=== PATIENT | female | born 1980 | race Caucasian/White ===

== ENCOUNTER 2017-01-10 14:07 | Outpatient (CLI) | payer BC, SELFPAY ==
--- NOTE | 2017-01-10 17:03 | US ---
EXAM DATE: 01/10/17 PATIENT'S AGE: 36 Patient: CRISTINA PANCHAL Facility: [place], [place] Site . Site : 1980 Study: US OB Pelvis [id number]/27/2017 4:05:52 PM Ordering Physician: Diony Summers Final Report: INDICATION: Cramping TECHNIQUE: Limited grayscale and Doppler imaging of the cervix. COMPARISON: None FINDINGS/ IMPRESSION: : The cervix measures 4.5 cm in length. The cervix appears closed. Placenta previa is partially visualized. Dictated by Keiko Cuellar MD @ Jan 10 2017 4:06PM (Electronic Signature) Report Signed by Proxy. ROLO
== END 2017-01-10 16:24 | disposition home or self-care (01) ==
LOC: MW.OBCHECK 14:07 → MW.OB 14:09 → MW.OBCHECK 16:24
PROVIDERS: ATTEND Obstetrics & Gynecology
DX: Z34.92 Encounter for supervision of normal pregnancy, unspecified, second trimester (principal)
CPT/HCPCS: 59025; 76817; 76817-26

== ENCOUNTER 2017-04-21 21:39 | Inpatient (IN) | payer MEDICAID ==
[2017-04-21] MEDS ORDERED: Methylergonovine 0.2 MG/1 ML Amp IM PRN (21:53)
[2017-04-21] MEDS ORDERED: Terbutaline 1 MG/ML SDV SUBCUT PRN (21:53)
[2017-04-21] MEDS ORDERED: Lidocaine 1% 50 ML MDV INJECT PRN (21:53)
[2017-04-21] MEDS ORDERED: Butorphanol 1 MG/ML SDV IVPUSH PRN (21:53)
[2017-04-21] MEDS ORDERED: Carboprost Tromethamine 250 MCG/1 ML Amp IM PRN (21:53)
[2017-04-21] MEDS ORDERED: Water For Irrigation,Sterile 1,000 ML Container IRR PRN (21:53)
[2017-04-21] MEDS ORDERED: Nalbuphine 10 MG/1 ML Vial IVPUSH PRN (21:53)
[2017-04-21] MEDS ORDERED: Misoprostol 200 MCG Tab PO PRN (21:53)
[2017-04-21] MEDS ORDERED: Sodium Chloride 0.9% 10 ML Syringe FLUSH PRN (21:58)
[2017-04-21] MEDS ORDERED: Sodium Chloride 0.9% 2.5 ML Syringe FLUSH PRN (21:58)
[2017-04-21] MEDS ORDERED: Misoprostol 25 MCG (1/4 of 100 MCG) Tab VAG SCH (22:00)
[2017-04-21] MEDS ORDERED: Oxytocin/Lactated Ringers 30 UNIT/500 ML BAG IV SCH ×2 (22:00)
[2017-04-21] MEDS: Lactated Ringers 1,000 ML IV SCH (22:40)
[2017-04-22] MEDS ORDERED: diphenhydrAMINE 25 MG Cap PO ONE
[2017-04-22] MEDS ORDERED: Acetaminophen 500 MG Tab PO ONE
[2017-04-22] MEDS: Lactated Ringers 1,000 ML IV SCH ×2 (01:28→02:25)
[2017-04-22] MEDS ORDERED: Ropivacaine HCl/PF 100 ML ONE (01:53)
[2017-04-22] MEDS ORDERED: fentaNYL 100 MCG/2 ML SDV ONE (01:53)
--- NOTE | 2017-04-22 02:43 | PCM.PREANE ---
Preanesthetic Assessment - Anesthesia/Transfusion/Family Hx Anesthesia History: Prior Anesthesia Without Reaction (Epidurals only, no GA) Family History of Anesthesia Reaction: No Transfusion History: No Prior Transfusion(s) - Review of Systems General: No Symptoms Pulmonary: No Symptoms Cardiovascular: No Symptoms Gastrointestinal: No Symptoms Neurological: No Symptoms Other: Reports: Anxiety - Physical Assessment NPO Status Date: 04/22/17 NPO Status Time: 02:41 (sips/chips) Blood Pressure: 134/84 Height: 5 ft 8 in Weight: 238 lb ASA Class: 2 Mental Status: Alert & Oriented x3 Airway Class: Mallampati = 2 Dentition: Reports: Normal Dentition ROM/Head Extension: Full Lungs: Clear to Auscultation, Normal Respiratory Effort Cardiovascular: Regular Rate, Regular Rhythm - Lab Values: Laboratory Last Values WBC 9.27 K/uL (4.0-11.0) 04/21/17 22:35 RBC 3.86 M/uL (4.30-5.90) L 04/21/17 22:35 Hgb 12.1 g/dL (12.0-16.0) 04/21/17 22:35 Hct 35.5 % (36.0-46.0) L 04/21/17 22:35 MCV 92.0 fL (80.0-98.0) 04/21/17 22:35 MCH 31.3 pg (27.0-32.0) 04/21/17 22:35 MCHC 34.1 g/dL (31.0-37.0) 04/21/17 22:35 RDW Std Deviation 54.2 fl (28.0-62.0) 04/21/17 22:35 RDW Coeff of Isaac 16 % (11.0-15.0) H 04/21/17 22:35 Plt Count 144 K/uL (150-400) L 04/21/17 22:35 MPV 12.20 fL (7.40-12.00) H 04/21/17 22:35 Nucleated RBC % 0.0 /100WBC 04/21/17 22:35 Nucleated RBCs # 0 K/uL 04/21/17 22:35 Blood Type O NEGATIVE 04/21/17 22:35 Antibody Screen POSITIVE 04/21/17 22:35 Antibody Identification Anti-D 04/21/17 22:35 - Allergies Allergies/Adverse Reactions: Allergies Allergy/AdvReac Type Severity Reaction Status Date / Time No Known Allergies Allergy Verified 01/10/17 15:15 - Blood Blood Available: No Product(s) Available: None - Anesthesia Plan Free Text/Narrative:: Labor Epidural - Acknowledgements Anesthesia Type Planned: Epidural Pt an Appropriate Candidate for the Planned Anesthesia: Yes Alternatives and Risks of Anesthesia Discussed w Pt/Guardian: Yes Pt/Guardian Understands and Agrees with Anesthesia Plan: Yes 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: Endocrine/Metabolic History: Reports: Hypothyroidism, Obesity/BMI 30+ - Infectious Disease History Infectious Disease History: Reports: Herpes (No active outbreak at this time) - SUBSTANCE USE Smoking Status *Q: Never Smoker Recreational Drug Use History: No - CURRENT (IN HOUSE) MEDS Current Meds: Current Medications Butorphanol Tartrate (Stadol) 1 mg IVPUSH Q1H PRN PRN Reason: Pain Carboprost Tromethamine (Hemabate Ds) 250 mcg IM ASDIRECTED PRN PRN Reason: Post Hemorrhage Lactated Ringer's (Ringers, Lactated) 1,000 mls @ 150 mls/hr IV ASDIRECTED HARSHAL Last Admin: 04/22/17 02:25 Dose: 999 mls/hr Oxytocin/Lactated Ringer's (Pitocin In Lr 30 Units/500 Ml) 30 unit in 500 mls @ 2 mls/hr IV TITRATE HARSHAL; 2 MUNITS/MIN PRN Reason: Protocol Stop: 04/22/17 21:59 Oxytocin/Lactated Ringer's (Pitocin In Lr 30 Units/500 Ml) 30 unit in 500 mls @ 2 mls/hr IV TITRATE HARSHAL; 2 MUNITS/MIN PRN Reason: Protocol Lidocaine HCl (Xylocaine 1%) 50 ml INJECT .ONCE PRN PRN Reason: Laceration repair Methylergonovine Maleate (Methergine) 0.2 mg IM ASDIRECTED PRN PRN Reason: Post Hemorrhage Misoprostol (Cytotec) 200 mcg PO .ONCE PRN PRN Reason: Post Hemorrhage Misoprostol (Cytotec) 25 mcg VAG .ONCE HARSHAL Last Admin: 04/21/17 22:44 Dose: 25 mcg Misoprostol (Cytotec) 25 mcg VAG Q6H HARSHAL Stop: 04/23/17 16:01 Sodium Chloride (Saline Flush) 10 ml FLUSH ASDIRECTED PRN PRN Reason: Keep Vein Open Sodium Chloride (Saline Flush) 2.5 ml FLUSH ASDIRECTED PRN PRN Reason: Keep Vein Open Sterile Water (Sterile Water For Irrigation) 1,000 ml IRR ASDIRECTED PRN PRN Reason: delivery Terbutaline Sulfate (Brethine) 0.25 mg SUBCUT ASDIRECTED PRN PRN Reason: Tacysystole Discontinued Medications Acetaminophen (Tylenol Extra Strength) 500 mg PO ONETIME ONE Stop: 04/22/17 00:01 Last Admin: 04/22/17 00:16 Dose: 500 mg Diphenhydramine HCl (Benadryl) 25 mg PO ONETIME ONE Stop: 04/22/17 00:01 Last Admin: 04/22/17 00:16 Dose: 25 mg Fentanyl (Sublimaze) Confirm Administered Dose 100 mcg .ROUTE .STK-MED ONE Stop: 04/22/17 01:54 Ropivacaine (Naropin 0.2%) Confirm Administered Dose 100 mls @ as directed .ROUTE .STK-MED ONE Stop: 04/22/17 01:54 Nalbuphine HCl (Nubain) 10 mg IVPUSH Q1H PRN PRN Reason: Pain (severe 7-10) Stop: 04/21/17 23:54
[2017-04-22] MEDS ORDERED: Witch Hazel Medicated Pads 40/Jar TOP PRN (04:45)
[2017-04-22] MEDS ORDERED: Benzocaine/Menthol 20%-0.5% Spray 78 GM Cannister TOP PRN (04:45)
[2017-04-22] MEDS ORDERED: Lanolin 100% Cream 7 GM Tube TOP PRN (04:45)
[2017-04-22] MEDS ORDERED: Methylergonovine 0.2 MG/1 ML Amp IM PRN (04:45)
[2017-04-22] MEDS ORDERED: Bisacodyl 10 MG Supp RECTAL PRN (04:45)
[2017-04-22] MEDS ORDERED: oxyCODONE 5 MG Tab PO PRN (04:45)
--- NOTE | 2017-04-22 05:23 | OR ---
SURGEON: Melina Vora M.D. DATE OF PROCEDURE: 04/22/2017 PREOPERATIVE DIAGNOSES: 1. A 39 and 1/7th week intrauterine . 2. Polyhydramnios. 3. Group B strep negative. 4. Personal history of herpes. POSTOPERATIVE DIAGNOSES: 1. A 39 and 1/7th week intrauterine . 2. Polyhydramnios. 3. Group B strep negative. 4. Personal history of herpes. PROCEDURE PERFORMED: 1. Pitocin induction of labor. 2. Term spontaneous vaginal delivery. ANESTHESIA: Epidural. ESTIMATED BLOOD LOSS: Less than 300 mL. FINDINGS: Live-born female, score 7 and 9, weighing 8 pounds and 6 ounces. Placenta spontaneous, Schultze intact with 3 vessels. Second-degree perineal laceration was repaired. COMPLICATIONS: None known. DISPOSITION: Mother and baby in RP in good condition. BRIEF HISTORY: This is a 37-year-old female. She is G4, P3-0-0-3. She presents at 39 and 1/7th weeks gestation with a history of polyhydramnios, negative TORCH titers, negative evaluation followed with serial biophysical profiles. She has a personal history of an episode of herpes outbreak. She has been on Valtrex since 34 weeks without any lesions or symptoms. She presents for induction of labor. She received a single dose of Cytotec. She progressed to 5 cm. She received an epidural for pain control. She had category 1 heart tones throughout labor. She progressed to complete. DESCRIPTION OF PROCEDURE: With the patient in dorsal lithotomy position, the patient pushed over a 10- minute time period to a 5+ station at which the head was delivered spontaneously and atraumatically over the perineum with support in the direct OP position with subsequent delivery of the infant's shoulders and body without any difficulty. The was bulb suctioned by nose and mouth. The was handed to the mother in the presence of the nurse attending delivery. The infant is a liveborn female, score 7 and 9 weighing 8 pounds and 6 ounces. After the cord had ceased to pulsate it was doubly clamped and cut. Cord blood was collected for routine cord blood sampling. Pitocin was initiated after delivery to the infant to assist with delivery of the placenta which was delivered spontaneously, Schultze intact with 3 vessels. Upon inspection of the pelvis and perineum, there was a second-degree perineal laceration that was repaired with a running lock suture of 2-0 Caprosyn. There were no periurethral, vaginal sidewall, cervical, or rectal lacerations. EBL was less than 300 mL. There were no known complications. Mother and baby are in LDRP in good condition. BEVERLY VELASQUEZ /[id number]
[2017-04-22] MEDS: Misoprostol 25 MCG (1/4 of 100 MCG) Tab VAG SCH (05:58)
[2017-04-22] MEDS: Docusate Sodium 100 MG Cap PO PRN ×2 (07:50→19:57)
[2017-04-22] MEDS: Acetaminophen 500 MG Tab PO PRN ×2 (07:51→23:27)
[2017-04-22] MEDS: Ibuprofen 400 MG Tab PO PRN ×2 (14:53→18:54)
[2017-04-23] MEDS: Acetaminophen 500 MG Tab PO PRN (07:43)
[2017-04-23] MEDS: Docusate Sodium 100 MG Cap PO PRN (07:44)
[2017-04-23] MEDS: Ibuprofen 400 MG Tab PO PRN (07:44)
[2017-04-23 09:24] VITALS: BP 139/86
--- NOTE | 2017-04-23 10:49 | PCM.PNPP ---
- General Info Date of Service: 04/23/17 Functional Status: Reports: Pain Controlled, Tolerating Diet, Ambulating - Review of Systems General: Reports: No Symptoms HEENT: Reports: No Symptoms Pulmonary: Reports: No Symptoms Cardiovascular: Reports: No Symptoms Gastrointestinal: Reports: No Symptoms Genitourinary: Reports: No Symptoms Musculoskeletal: Reports: No Symptoms Skin: Reports: No Symptoms Neurological: Reports: No Symptoms Psychiatric: Reports: No Symptoms - Patient Data Vital Signs - Most Recent: Last Vital Signs Temp 36.3 C 04/23/17 08:00 Pulse 69 04/23/17 08:00 Resp 16 04/23/17 08:00 BP 139/86 04/23/17 08:00 Pulse Ox 99 04/23/17 08:00 Weight - Most Recent: 107.955 kg Lab Results - Last 24 Hours: Laboratory Results - last 24 hr 04/21/17 04/23/17 Range/Units 22:35 05:08 Hgb 11.1 L (12.0-16.0) g/dL Hct 33.1 L (36.0-46.0) % Blood Type O NEGATIVE Antibody Screen POSITIVE Antibody Identification Anti-D Med Orders - Current: Current Medications Acetaminophen (Tylenol Extra Strength) 1,000 mg PO Q4H PRN PRN Reason: Pain Last Admin: 04/23/17 07:43 Dose: 1,000 mg Benzocaine/Menthol (Dermoplast Pain Relief 20%-0.5% [place]) 78 gm TOP ASDIRECTED PRN PRN Reason: Perineal Comfort Measure Last Admin: 04/22/17 07:52 Dose: 1 can Bisacodyl (Dulcolax) 10 mg RECTAL .ONCE PRN PRN Reason: Constipation Docusate Sodium (Colace) 100 mg PO BID PRN PRN Reason: Constipation Last Admin: 04/23/17 07:44 Dose: 100 mg Emollient Ointment (Lansinoh Hpa) 0 gm TOP ASDIRECTED PRN PRN Reason: Sore Nipples Ibuprofen (Motrin) 400 mg PO Q4H PRN PRN Reason: Pain Last Admin: 04/23/17 07:44 Dose: 400 mg Methylergonovine Maleate (Methergine) 0.2 mg IM .ONCE PRN PRN Reason: Excessive Vaginal Bleeding Oxycodone HCl (Oxycodone) 5 mg PO Q2H PRN PRN Reason: Pain Witch Tanya (Tucks) 1 pad TOP ASDIRECTED PRN PRN Reason: comfort care Last Admin: 04/22/17 07:52 Dose: 1 tub Discontinued Medications Acetaminophen (Tylenol Extra Strength) 500 mg PO ONETIME ONE Stop: 04/22/17 00:01 Last Admin: 04/22/17 00:16 Dose: 500 mg Butorphanol Tartrate (Stadol) 1 mg IVPUSH Q1H PRN PRN Reason: Pain Carboprost Tromethamine (Hemabate Ds) 250 mcg IM ASDIRECTED PRN PRN Reason: Post Hemorrhage Diphenhydramine HCl (Benadryl) 25 mg PO ONETIME ONE Stop: 04/22/17 00:01 Last Admin: 04/22/17 00:16 Dose: 25 mg Fentanyl (Sublimaze) Confirm Administered Dose 100 mcg .ROUTE .[employer] ONE Stop: 04/22/17 01:54 Last Admin: 04/22/17 05:59 Dose: Not Given Lactated Ringer's (Ringers, Lactated) 1,000 mls @ 150 mls/hr IV ASDIRECTED HARSHAL Last Admin: 04/22/17 02:25 Dose: 999 mls/hr Oxytocin/Lactated Ringer's (Pitocin In Lr 30 Units/500 Ml) 30 unit in 500 mls @ 2 mls/hr IV TITRATE HARSHAL; 2 MUNITS/MIN PRN Reason: Protocol Stop: 04/22/17 21:59 Last Admin: 04/22/17 04:25 Dose: 999 mls/hr Oxytocin/Lactated Ringer's (Pitocin In Lr 30 Units/500 Ml) 30 unit in 500 mls @ 2 mls/hr IV TITRATE HARSHAL; 2 MUNITS/MIN PRN Reason: Protocol Ropivacaine (Naropin 0.2%) Confirm Administered Dose 100 mls @ as directed .ROUTE .Jooobz!-MED ONE Stop: 04/22/17 01:54 Last Admin: 04/22/17 05:59 Dose: Not Given Lidocaine HCl (Xylocaine 1%) 50 ml INJECT .ONCE PRN PRN Reason: Laceration repair Methylergonovine Maleate (Methergine) 0.2 mg IM ASDIRECTED PRN PRN Reason: Post Hemorrhage Misoprostol (Cytotec) 200 mcg PO .ONCE PRN PRN Reason: Post Hemorrhage Misoprostol (Cytotec) 25 mcg VAG .ONCE HARSHAL Last Admin: 04/21/17 22:44 Dose: 25 mcg Misoprostol (Cytotec) 25 mcg VAG Q6H HARSHAL Stop: 04/23/17 16:01 Last Admin: 04/22/17 05:58 Dose: Not Given Nalbuphine HCl (Nubain) 10 mg IVPUSH Q1H PRN PRN Reason: Pain (severe 7-10) Stop: 04/21/17 23:54 Sodium Chloride (Saline Flush) 10 ml FLUSH ASDIRECTED PRN PRN Reason: Keep Vein Open Sodium Chloride (Saline Flush) 2.5 ml FLUSH ASDIRECTED PRN PRN Reason: Keep Vein Open Sterile Water (Sterile Water For Irrigation) 1,000 ml IRR ASDIRECTED PRN PRN Reason: delivery Terbutaline Sulfate (Brethine) 0.25 mg SUBCUT ASDIRECTED PRN PRN Reason: Tacysystole - Infant Interaction Infant Disposition, : [place] in Room with Family Infant Interaction: Holding Infant Feeding: Attempted ; Nursed Fair/Poor Support Person: Significant Other - Recovery Exam Fundal Tone: Firm Fundal Level: 2 Fingerbreadths Below Umbilicus Fundal Placement: Midline Lochia Amount: Small Lochia Color: Rubra/Red Perineum Description: Intact, Minimal Bruising/Swelling Other Perinuem Description: 2nd degree laceration Episiotomy/Laceration: None Bladder Status: Voiding Urinary Elimination: Voided - Exam General: Alert, Oriented HEENT: Pupils Equal Neck: Supple Lungs: Clear to Auscultation, Normal Respiratory Effort GI/Abdominal Exam: Soft, Non-Tender, No Organomegaly, No Distention, No Abnormal Bruit, No Mass, Pelvis Stable Extremities: Normal Inspection, Non-Tender, No Pedal Edema Skin: Warm, Dry, Intact Neurological: No New Focal Deficit Psy/Mental Status: Alert, Normal Affect, Normal Mood - Problem List & Annotations (1) Polyhydramnios, delivered, current hospitalization SNOMED Code(s): 987718731 Code(s): O40.9XX0 - POLYHYDRAMNIOS, UNSP TRIMESTER, NOT APPLICABLE OR UNSP Status: Acute Current Visit: Yes (2) Vaginal delivery SNOMED Code(s): 723094823 Code(s): O80 - ENCOUNTER FOR FULL-TERM UNCOMPLICATED DELIVERY Status: Acute Current Visit: Yes - Problem List Review Problem List Initiated/Reviewed/Updated: Yes - Assessment Assessment:: PPD#1 after , stable minimal lochia, would like to go home today. Having difficulty with baby latching and would like to pump. Denies any mood symptoms.l - Plan Plan:: Continue care, dismiss later today. Discharge instructions reviewed.
--- NOTE | 2017-04-23 21:15 | PCM48HPAN ---
Post Anesthesia Note - EVALUATION WITHIN 48HRS OF ANESTHETIC Vital Signs in Normal Range: Yes Patient Participated in Evaluation: Yes Respiratory Function Stable: Yes Airway Patent: Yes Cardiovascular Function Stable: Yes Hydration Status Stable: Yes Pain Control Satisfactory: Yes Nausea and Vomiting Control Satisfactory: Yes Mental Status Recovered: Yes
== END 2017-04-23 12:05 | disposition home or self-care (01) | DRG 774 ==
LOC: MW.OBCHECK 21:39 → MW.OB 21:53 → MW.OBCHECK 21:54 → OBSVTOIN 04-22 04:24
PROVIDERS: ADMIT Obstetrics & Gynecology; ATTEND Obstetrics & Gynecology
PROC: 10E0XZZ Delivery of Products of Conception, External Approach (ICD-10-PCS; principal; 2017-04-22)
PROC: 0KQM0ZZ Repair Perineum Muscle, Open Approach (ICD-10-PCS; 2017-04-22)
PROC: 3E0P7GC Introduction of Other Therapeutic Substance into Female Reproductive, Via Natural or Artificial Opening (ICD-10-PCS; 2017-04-22)
DX: O40.3XX0 Polyhydramnios, third trimester, not applicable or unspecified (principal); O98.52 Other viral diseases complicating childbirth; O70.1 Second degree perineal laceration during delivery; B00.9 Herpesviral infection, unspecified; O09.523 Supervision of elderly multigravida, third trimester; Z3A.39 39 weeks gestation of pregnancy; Z37.0 Single live birth
CPT/HCPCS: 36415; 59025; 81003; 85014; 85018; 85027; 86850; 86870; 86900; 86901; A9270-GY; J7120

== ENCOUNTER 2019-05-02 22:23 | Emergency (ER) | payer BC, SELFPAY ==
[2019-05-02 22:38] VITALS: BP 123/83
[2019-05-02] MEDS ORDERED: Ketorolac 60 MG/2 ML SDV IM ONE (22:41)
[2019-05-02] MEDS ORDERED: Ketorolac 60 MG/2 ML SDV ONE (22:42)
--- NOTE | 2019-05-02 22:48 | EDM.PDOC ---
ED HPI GENERAL MEDICAL PROBLEM - General Chief Complaint: Back Pain or Injury Stated Complaint: PT HAS BACK PAIN Time Seen by Provider: 05/02/19 22:43 Source of Information: Reports: Patient History Limitations: Reports: No Limitations - History of Present Illness INITIAL COMMENTS - FREE TEXT/NARRATIVE: HISTORY AND PHYSICAL: History of present illness: Patient is a 39-year-old female presents to the ED with complaint of low back pain x 3 days. She denies injury to the back, states that 3 days ago she went to stand up and felt stiffness in her low back. She states it has progressively gotten worse. She reports numbness in her right lateral leg when she sits down. She denies fevers, chills, saddle anesthesia, bowel or bladder incontinence, lower extremity weakness, dysuria, hematuria. Review of systems: As per history of present illness and below otherwise all systems reviewed and negative. Past medical history: As per history of present illness and as reviewed below otherwise noncontributory. Surgical history: As per history of present illness and as reviewed below otherwise noncontributory. Social history: No reported history of drug or alcohol abuse. Family history: As per history of present illness and as reviewed below otherwise noncontributory. Physical exam: General: Patient sitting comfortably in no acute distress and nontoxic appearing HEENT: Atraumatic, normocephalic, pupils reactive, negative for conjunctival pallor or scleral icterus, mucous membranes moist, throat clear, neck supple, nontender, trachea midline. No meningeal signs. Lungs: Clear to auscultation, breath sounds equal bilaterally, chest nontender. Heart: S1S2, regular, negative for clicks, rubs, or overt murmur. Abdomen: Soft, nondistended, nontender. Negative for masses or hepatosplenomegaly. Negative for costovertebral tenderness. No rigidity, rebound , guarding. Pelvis: Stable nontender. Genitourinary: Deferred. Rectal: Deferred. Spine: Lumbar spinous process tenderness to palpation without step offs. upper and lower extremity strength is 5/5. Extremities: Atraumatic, negative for cords or calf pain. Neurovascular unremarkable. Neuro: Awake, alert, oriented. Cranial nerves II through XII unremarkable. Cerebellum unremarkable. Motor and sensory unremarkable throughout. Exam nonfocal. Notes: Diagnostics: x-ray lumbar spine Therapeutics: Toradol 60mg IM Norflex 60mg IM Prescriptions: Impression: Lumbar back pain Plan: Alternate tylenol and motrin as needed Follow up with primary care provider Return to ED as needed as discussed Definitive disposition and diagnosis as appropriate pending reevaluation and review of above. 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 ED EXAM,LOWER BACK PAIN/INJURY - Physical Exam Exam: See Below (see dictation) Course - Vital Signs Last Recorded V/S: Last Vital Signs Temp 97 F 05/02/19 22:30 Pulse 81 05/02/19 22:30 Resp 18 05/02/19 22:30 BP 123/83 05/02/19 22:30 Pulse Ox 99 05/02/19 22:30 - Orders/Labs/Meds Labs: Laboratory Tests 05/02/19 Range/Units 23:10 Urine Color DARK YELLOW Urine Appearance HAZY Urine pH 6.0 (5.0-8.0) Ur Specific Bee 1.020 (1.001-1.035) Urine Protein NEGATIVE (NEGATIVE) mg/dL Urine Glucose (UA) NEGATIVE (NEGATIVE) mg/dL Urine Ketones NEGATIVE (NEGATIVE) mg/dL Urine Occult Blood NEGATIVE (NEGATIVE) Urine Nitrite NEGATIVE (NEGATIVE) Urine Bilirubin NEGATIVE (NEGATIVE) Urine Urobilinogen 0.2 (<2.0) EU/dL Ur Leukocyte Esterase NEGATIVE (NEGATIVE) Meds: Medications Discontinued Medications Generic Name Dose Route Start Last Admin Trade Name Freq PRN Reason Stop Dose Admin Ketorolac Tromethamine 60 mg 05/02/19 22:41 05/02/19 22:46 Toradol IM 05/02/19 22:42 60 mg ONETIME ONE Administration Ketorolac Tromethamine Confirm 05/02/19 22:42 05/02/19 23:09 Toradol Administered 05/02/19 22:43 Not Given Dose 60 mg .ROUTE .STK-MED ONE Orphenadrine Citrate 60 mg 05/02/19 22:41 05/02/19 22:46 Norflex IM 05/02/19 22:42 60 mg NOW STA Administration Orphenadrine Citrate Confirm 05/02/19 22:42 05/02/19 23:09 Norflex Administered 05/02/19 22:43 Not Given Dose 60 mg .ROUTE .STK-MED ONE Departure - Departure Time of Disposition: 23:31 Disposition: Home, Self-Care 01 Condition: Good Clinical Impression: Lumbar back pain - Discharge Information Referrals: PCP,None [Primary Care Provider] - Forms: ED Department Discharge Additional Instructions: The following information is given to patients seen in the emergency department who are being discharged to home. This information is to outline your options for follow-up care. We provide all patients seen in our emergency department with a follow-up referral. The need for follow-up, as well as the timing and circumstances, are variable depending upon the specifics of your emergency department visit. If you don't have a primary care physician on staff, we will provide you with a referral. We always advise you to contact your personal physician following an emergency department visit to inform them of the circumstance of the visit and for follow-up with them and/or the need for any referrals to a consulting specialist. The emergency department will also refer you to a specialist when appropriate. This referral assures that you have the opportunity for follow-up care with a specialist. All of these measure are taken in an effort to provide you with optimal care, which includes your follow-up. Under all circumstances we always encourage you to contact your private physician who remains a resource for coordinating your care. When calling for follow-up care, please make the office aware that this follow-up is from your recent emergency room visit. If for any reason you are refused follow-up, please contact the [facility] Emergency Department at and asked to speak to the emergency department charge nurse. [facility] [address] [place] [id number] [facility] [address] [place] [address] Alternate tylenol and motrin as needed. Flexeril as needed for severe pain, do not take while driving as it may make you drowsy Follow up with primary care provider Return to ED as needed as discussed
--- NOTE | 2019-05-02 23:29 | CR ---
HISTORY: Back pain COMPARISON: None available. FINDINGS: The lumbar spine was examined with AP, lateral, and lateral spot views for a total of three views. There is no sign of fracture or subluxation. The vertebral bodies are normal in height and they are in anatomic alignment. There is moderate L5-S1 disc degenerative disease. The remainder of the intervertebral discs are normal in height. There is minimal scoliosis of the lumbar spine convex towards the left with the apex at the L4 level. The visualized bony pelvis and bowel gas pattern are normal in appearance. IMPRESSION: Moderate L5-S1 disc degenerative disease. Dictated by Juan Castro MD @ May 02 2019 11:26PM Signed by Dr. Juan Castro @ May 02 2019 11:27PM
== END 2019-05-02 23:41 | disposition home or self-care (01) ==
LOC: MW.ED 22:23
DX: M54.5 Low back pain (principal)
CPT/HCPCS: 72100; 81003; 96372; 99283; J1885; J2360

== ENCOUNTER 2019-09-25 09:28 | Day surgery (SDC) | payer BC ==
[~2019-09-25 09:28] MED LIST: Bupivacaine 0.5% 30 ML SDV ONE; Lactated Ringers 1,000 ML IV SCH; Lidocaine 2% 5 ML SDV ONE; Midazolam 1 MG/ML 2 ML SDV ONE; Propofol 200 MG/20 ML SDV ONE; ceFAZolin 2 GM in Premix Bag 1 BAG IV SCH; fentaNYL 100 MCG/2 ML SDV ONE
[2019-09-25] MEDS ORDERED: Lidocaine 1% 20 ML MDV ONE (10:00)
--- NOTE | 2019-09-25 10:15 | PCM.PREANE ---
Preanesthetic Assessment - Anesthesia/Transfusion/Family Hx Anesthesia History: No Prior Anesthesia Family History of Anesthesia Reaction: No Transfusion History: No Prior Transfusion(s) - Review of Systems General: No Symptoms Pulmonary: No Symptoms Cardiovascular: No Symptoms Gastrointestinal: No Symptoms Other: Reports: None - Physical Assessment NPO Status Date: 09/24/19 Vital Signs: Last Vital Signs Temp 97.2 F 09/25/19 09:52 Pulse 69 09/25/19 09:52 Resp 16 09/25/19 09:52 BP 141/86 H 09/25/19 09:52 Pulse Ox 99 09/25/19 09:52 Height: 5 ft 8 in Weight: 106.594 kg ASA Class: 2 Mental Status: Alert & Oriented x3 Airway Class: Mallampati = 2 Dentition: Reports: Normal Dentition ROM/Head Extension: Full Lungs: Clear to Auscultation, Normal Respiratory Effort Cardiovascular: Regular Rate, Regular Rhythm - Allergies Allergies/Adverse Reactions: Allergies Allergy/AdvReac Type Severity Reaction Status Date / Time No Known Allergies Allergy Verified 09/25/19 09:57 - Blood Blood Available: No - Anesthesia Plan Pre-Op Medication Ordered: None - Acknowledgements Anesthesia Type Planned: MAC Pt an Appropriate Candidate for the Planned Anesthesia: Yes Alternatives and Risks of Anesthesia Discussed w Pt/Guardian: Yes Pt/Guardian Understands and Agrees with Anesthesia Plan: Yes Additional Comments: PMH: thyroid replacement, started on Ozempic at pre op visit this week for elevated A1c? 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: Endocrine/Metabolic History: Reports: Hypothyroidism, Obesity/BMI 30+ - Infectious Disease History Infectious Disease History: Reports: Herpes (No active outbreak at this time) - Past Surgical History Head Surgeries/Procedures: Reports: None - SUBSTANCE USE Smoking Status *Q: Never Smoker Recreational Drug Use History: No - HOME MEDS Home Medications: Home Meds Levothyroxine 75 mcg PO QAM 09/24/19 [History] - CURRENT (IN HOUSE) MEDS Current Meds: Current Medications Cefazolin Sodium/Dextrose 2 gm (/ Premix) 50 mls @ 100 mls/hr IV ONCALL HARSHAL Lactated Ringer's (Ringers, Lactated) 1,000 mls @ 100 mls/hr IV ASDIRECTED HARSHAL Last Admin: 09/25/19 09:58 Dose: 100 mls/hr Discontinued Medications Bupivacaine HCl (Marcaine 0.5%) Confirm Administered Dose 30 ml .ROUTE .STK-MED ONE Stop: 09/25/19 09:21 Fentanyl (Sublimaze) Confirm Administered Dose 100 mcg .ROUTE .STK-MED ONE Stop: 09/25/19 09:17 Lidocaine (Xylocaine-Mpf 2%) Confirm Administered Dose 5 ml .ROUTE .STK-MED ONE Stop: 09/25/19 09:17 Lidocaine HCl (Xylocaine 1%) Confirm Administered Dose 20 ml .ROUTE .STK-MED ONE Stop: 09/25/19 10:01 Midazolam HCl (Versed 1 Mg/Ml) Confirm Administered Dose 2 mg .ROUTE .STK-MED ONE Stop: 09/25/19 09:17 Propofol (Diprivan 20 Ml) Confirm Administered Dose 200 mg .ROUTE .STK-MED ONE Stop: 09/25/19 09:17
[2019-09-25] MEDS ORDERED: Dexamethasone 4 MG/ML 5 ML MDV ONE (10:16)
[2019-09-25] MEDS ORDERED: ceFAZolin/Dextrose,Iso-Osmotic 2 GM/50 ML Duplex Bag IV ONE (10:52)
[2019-09-25] MEDS ORDERED: Ketorolac 30 MG/ML SDV ONE (11:02)
[2019-09-25] MEDS ORDERED: Ondansetron 4 MG/2 ML SDV ONE (11:02)
--- NOTE | 2019-09-25 11:44 | PCM.POSTAN ---
POST ANESTHESIA ASSESSMENT - MENTAL STATUS Mental Status: Alert, Oriented - VITAL SIGNS Vital Signs: Last Vital Signs Temp 36.2 C 09/25/19 09:52 Pulse 66 09/25/19 11:40 Resp 21 H 09/25/19 11:40 BP 133/73 09/25/19 11:40 Pulse Ox 96 09/25/19 11:40 - RESPIRATORY Respiratory Status: Respiratory Rate WNL - CARDIOVASCULAR CV Status: Pulse Rate WNL - GASTROINTESTINAL GI Status: No Symptoms - POST OP HYDRATION Hydration Status: Adequate & Stable
--- NOTE | 2019-09-25 11:45 | PCM.POSTAN ---
POST ANESTHESIA ASSESSMENT - VITAL SIGNS Vital Signs: Last Vital Signs Temp 36.2 C 09/25/19 09:52 Pulse 66 09/25/19 11:40 Resp 21 H 09/25/19 11:40 BP 133/73 09/25/19 11:40 Pulse Ox 96 09/25/19 11:40 - RESPIRATORY Respiratory Status: Respiratory Rate WNL - CARDIOVASCULAR CV Status: Pulse Rate WNL - GASTROINTESTINAL GI Status: No Symptoms - POST OP HYDRATION Hydration Status: Adequate & Stable
--- NOTE | 2019-09-25 12:30 | PCM48HPAN ---
Post Anesthesia Note - EVALUATION WITHIN 48HRS OF ANESTHETIC Vital Signs in Normal Range: Yes Patient Participated in Evaluation: Yes Respiratory Function Stable: Yes Airway Patent: Yes Cardiovascular Function Stable: Yes Hydration Status Stable: Yes Pain Control Satisfactory: Yes Nausea and Vomiting Control Satisfactory: Yes Mental Status Recovered: Yes Vital Signs: Last Vital Signs Temp 97.2 F 09/25/19 09:52 Pulse 61 09/25/19 11:45 Resp 16 09/25/19 11:45 BP 142/85 H 09/25/19 11:45 Pulse Ox 100 09/25/19 11:45
[2019-09-25 12:47] VITALS: BP 186/82; PULSE 56
--- NOTE | 2019-09-25 13:30 | PCM.OPNOTE ---
- General Post-Op/Procedure Note Date of Surgery/Procedure: 09/25/19 Operative Procedure(s): bilateral cts Pre Op Diagnosis: bilateral cts Post-Op Diagnosis: Same Anesthesia Technique: Moderate Sedation Primary Surgeon: Víctor Barber Head Rose Grower: Nati Turpin in mLs: 5 Condition: Good Free Text/Narrative:: Intake & Output 09/24/19 09/25/19 09/25/19 22:59 06:59 14:59 Intake Total 900 Balance 900
--- NOTE | 2019-09-25 14:14 | OR ---
SURGEON: Víctor Barber DATE OF PROCEDURE: 09/25/2019 PREOPERATIVE DIAGNOSIS: Bilateral carpal tunnel syndrome. POSTOPERATIVE DIAGNOSIS: Bilateral carpal tunnel syndrome. PROCEDURE: Bilateral carpal tunnel release. PRIMARY SURGEON: Víctor Barber DO. AGRONOMY SUPERVISOR: BOB Sandoval. ROLE OF AGRONOMY SUPERVISOR: Nurse practitioner, BOB Sandoval, played an essential role in assisting in this case, helping to position the patient, retract structures as needed, as well as suturing and cutting sutures as indicated. Her presence improved patient's safety and decreased operative time. FLUID: Lactated Ringer's solution. ESTIMATED BLOOD LOSS: 5 mL. COMPLICATION: None. SPECIMEN: None. DISCHARGE DISPOSITION: Stable to PACU. HISTORY AND INDICATIONS FOR THE PROCEDURE: The patient was seen preoperatively by myself in the clinic. She had a confirmed carpal tunnel syndrome via EMG. Risks and goals of the procedure were explained to the patient and informed consent was obtained. DETAILS OF PROCEDURE: The patient was seen preoperatively by myself and the Anesthesia staff in the preoperative holding area where the operative site was marked. She was brought to the operative suite by Anesthesia staff where MAC anesthesia was administered. A well-padded tourniquet was placed on bilateral forearms. The forearms and hands were then both prepped and draped in a sterile manner. Time- out was called identifying the correct patient, the correct procedure, the correct site, and that antibiotics had been given within appropriate period of time. We started with the right upper extremity first. The right forearm was exsanguinated, tourniquet were raised to 200 mmHg. A line was drawn just proximal to Ocampo's cardinal line in line with the 1st metacarpal and then proximal in line with the radial border of the 4th digit and extending about 1.5 cm. I then infiltrated with local anesthesia, first trying with lidocaine and then with Sensorcaine, and then made my incision. I used a self-retaining retractor. I was able to brush away the subcutaneous fat with a 15 blade. I was then able to visualize the transverse carpal ligament, which I incised through. I then went underneath the deep palmar fascia proximally and distally the transverse carpal ligament with Brigette. I then, under direct visualization, using Ragnell's, divided the deep palmar fascia proximally and distally the transverse carpal ligament. Once this was free, I then applied some dexamethasone, some more local, and then closed with interrupted 3-0 nylon horizontal mattress sutures followed by Betadine-soaked Adaptic sponge and Levon. Tourniquet was let down after closure. I then repeated the procedure on the left wrist, exactly the same. I would note though that the palmaris brevis was quite prominent distal to the transverse carpal ligament and it did appear to be very tight. I did take an extended amount of time to make sure that it was freed appropriately while protecting the median nerve. We then closed in the same manner. The patient was then allowed to awaken from moderate anesthesia and then taken to the PACU in stable condition. [id number] / MODL /[id number]
== END 2019-09-25 12:43 | disposition home or self-care (01) ==
LOC: MW.SDS 09:28
PROVIDERS: ATTEND Orthopaedic Surgery
DX: G56.03 Carpal tunnel syndrome, bilateral upper limbs (principal); E03.9 Hypothyroidism, unspecified; E66.9 Obesity, unspecified; Z68.35 Body mass index [BMI] 35.0-35.9, adult
CPT/HCPCS: 64721; 81025; J0690; J1100; J1885; J2001; J2250; J2405; J2704; J3010; J3490; J7120